=== PATIENT | female | born 1940 | race Caucasian/White ===

== ENCOUNTER 2018-08-15 10:23 | Outpatient (CLI) | payer MEDICARE ==
[~2018-08-15] VITALS: Ht 167.6 cm; Wt 54.4 kg
== END 2018-08-15 12:23 | disposition home or self-care (01) ==
LOC: ECT 10:23
DX: F31.4 Bipolar disorder, current episode depressed, severe, without psychotic features (principal); Z86.73 Personal history of transient ischemic attack (TIA), and cerebral infarction without residual deficits; I10 Essential (primary) hypertension; Z90.710 Acquired absence of both cervix and uterus; E78.00 Pure hypercholesterolemia, unspecified; M19.90 Unspecified osteoarthritis, unspecified site; I73.00 Raynaud's syndrome without gangrene

== ENCOUNTER 2018-08-17 05:25 | Outpatient (RCR) | payer MEDICARE | END 2018-09-09 | disposition home or self-care (01) | LOC: ECT 05:25 | DX: F31.4 Bipolar disorder, current episode depressed, severe, without psychotic features (principal) ==